=== PATIENT | male | born 1995 | race Caucasian/White ===

== ENCOUNTER 2024-03-25 02:16 | Emergency (ER) | payer OTHER ==
[~2024-03-25] VITALS: Ht 177.8 cm; Wt 72.6 kg
[2024-03-25 03:28] VITALS: BP 122/79; TEMP 98; O2SAT 99
== END 2024-03-25 05:12 | disposition home or self-care (01) ==
LOC: ER 02:18
DX: S62.664A Nondisplaced fracture of distal phalanx of right ring finger, initial encounter for closed fracture (principal); S60.041A Contusion of right ring finger without damage to nail, initial encounter; Z90.49 Acquired absence of other specified parts of digestive tract; W21.220A Struck by ice hockey puck, initial encounter; Y93.79 Activity, other specified sports and athletics; Y92.89 Other specified places as the place of occurrence of the external cause; Y99.8 Other external cause status
CPT/HCPCS: 73130-TC